=== PATIENT | male | born 1960 | race Caucasian/White ===

== ENCOUNTER → 2017-12-13 | Outpatient (CLI) | payer OTHER ==
[2017-12-13 15:46] LABS: BASO % 0.3 %; BASO ABS # 0.02 K/uL (0-0.2); EOS % 3.3 %; EOS ABS # 0.25 K/uL (0-0.5); HEMATOCRIT 31.2 % (42-52); HEMOGLOBIN 9.8 g/dL (14.0-18.0); IG# 0.01 K/uL (0.00-0.02); LYMPH % 22.4 %; LYMPH ABS # 1.69 K/uL (1.2-3.4); MEAN CELL VOLUME 85.2 fL (80-100); MEAN CORPUSCULAR HEMOGLOBIN 26.8 pg (25-34); MEAN CORPUSCULAR HGB CONC 31.4 g/dl (32-36); MEAN PLATELET VOLUME 8.5 fL (7.4-10.4); MONO % 4.9 %; MONO ABS # 0.37 K/uL (0.11-0.59); PLATELET COUNT 507 K/uL (130-400); RED CELL DISTRIBUTION WIDTH CV 15.3 % (11.5-14.5); RED CELL DISTRIBUTION WIDTH SD 47.6 fL (36.4-46.3); WHITE BLOOD COUNT 7.54 K/uL (4.8-10.8)
== END | disposition home or self-care (01) ==
LOC: C.LAB 14:46
DX: Z96.652 Presence of left artificial knee joint (principal)

== ENCOUNTER → 2018-02-28 | Outpatient (CLI) | payer OTHER ==
[~2018-02-28] MED LIST: ACET-24 PO; ASPI325T39 PO; ASPI81TA28 PO; ATOR-24 PO; DAPT500I INJ; LPD600 PO; MULT-506 PO; NXM/40 PO; ONDA-170 PO; PARO1TAB9 PO; PRMT25 PO; RXC5 PO; TRAZ50TA35 PO; XRL10 PO
== END | disposition home or self-care (01) ==
LOC: C.LABSPEC 11:36
DX: T84.54XD Infection and inflammatory reaction due to internal left knee prosthesis, subsequent encounter (principal); Y83.1 Surgical operation with implant of artificial internal device as the cause of abnormal reaction of the patient, or of later complication, without mention of misadventure at the time of the procedure

== ENCOUNTER 2018-03-06 11:24 | Inpatient (IN) | payer OTHER ==
[2018-01-22 11:06] VITALS: BMI 43.0
--- NOTE | 2018-03-05 11:51 | HISTORY & PHYSICAL EXAMINATION ---
DATE OF ADMISSION: 03/06/2018 CHIEF COMPLAINT: Septic left total knee arthroplasty. HISTORY OF PRESENT ILLNESS: Patient is a 57-year-old male, approximately 8 weeks status post left total knee excisional arthroplasty and placement of articulated antibiotic spacer. Patient had a PICC line in place and approximately 6 weeks of IV antibiotics. He was recently seen for repeat aspiration prior to revision knee arthroplasty. The knee aspirate was suspicious for ongoing infection. Cultures demonstrated MRSA, and cell count demonstrated ongoing infection. He is now scheduled for left knee removal of existing antibiotic spacer and revision to a new articulated versus static antibiotic spacer. PAST MEDICAL HISTORY: Hypercholesterolemia, sleep apnea, with CPAP use, depression, kidney stones, acid reflux, obesity. PAST SURGICAL HISTORY: Left knee as above and previous left total knee arthroplasty by an outside physician, bilateral shoulder surgery, gastric bypass, neck surgery, right hand surgery. MEDICATIONS: Atorvastatin 80 mg daily, esomeprazole 40 mg daily, gemfibrozil 600 mg 2 times daily, midodrine 5 mg 2 times daily, multivitamin daily, paroxetine ER 25 mg 2 tablets daily, trazodone 50 mg daily. ALLERGIES: FISH OIL. SOCIAL HISTORY: Noncontributory. REVIEW OF SYSTEMS: Noncontributory. PHYSICAL EXAMINATION: GENERAL: Well-nourished and well-developed male who appears older than his stated age. HEENT: Normocephalic, atraumatic. Extraocular movements intact. Oropharynx pink and moist. NECK: Supple, no adenopathy. LUNGS: Clear to auscultation bilaterally. HEART: Regular rate and rhythm. ABDOMEN: Soft, nontender, nondistended. EXTREMITIES: The upper extremities are within normal limits. The left knee has a healed midline incision from his multiple previous surgeries. His range of motion is from 0 to 90 degrees. He has continued effusion. ASSESSMENT: Recurrent infection, left knee. PLAN: Risks versus benefits were discussed, consent was obtained. Patient's primary care physician is the [facility]. Will proceed with left knee removal of articulated antibiotic spacer and repeat I and D and placement of articulated versus static antibiotic spacer.
--- NOTE | 2018-03-05 12:32 | HISTORY & PHYSICAL EXAMINATION ---
DATE OF ADMISSION: 03/06/2018 CHIEF COMPLAINT: History of left septic knee replacement. HISTORY OF PRESENT ILLNESS: Mr. Heaton is a 57-year-old male who currently has an antibiotic spacer in his left knee. This placed on 01/02/2018. The patient has recently completed 6 weeks of IV antibiotics and is now seeing me for a potential preop for revision knee arthroplasty. The patient had a fall a few days prior and was seen at [facility]. Since that time, the patient has had limited range of motion and increased pain in the knee. X-rays today reveal anterior displacement of the tibial component. The patient's original knee was done in 1988. PAST MEDICAL HISTORY: History of cerebrovascular accident with right-sided residual effects, history of MRSA. He denies heart disease, diabetes or DVT. PAST SURGICAL HISTORY: Left TKA, left TKA excision with antibiotic spacer, bilateral total shoulder arthroplasty, gastric bypass, hernia repair and cervical fusion. SOCIAL HISTORY: The patient denies alcohol use. He does smoke 1-2 cigars per day. He lives in a 2-story home. He lives alone and is currently on disability due to his CVA. FAMILY HISTORY: Negative for DVT. MEDICATIONS: Unknown. ALLERGIES: FISH OIL, CAUSES HEARTBURN. REVIEW OF SYSTEMS: See HPI. Ten other systems reviewed, all negative. PHYSICAL EXAMINATION: VITAL SIGNS: Height 5 feet 4 inches, weight 243 pounds. GENERAL: This is a well-developed, well-nourished male who is alert and oriented x3. Mood and affect are appropriate. HEENT: Normocephalic, atraumatic. Mucous membranes are moist and intact. NECK: Supple without lymphadenopathy. HEART: Regular rate and rhythm without murmurs, rubs or gallops. LUNGS: Clear to auscultation without wheezes or rhonchi. ABDOMEN: Soft and nontender. Bowel sounds are equal and active. EXTREMITIES: Left lower extremity shows moderate edema. He has a midline incision that is well healed. Knee is warm to the touch. He has significant swelling posteriorly. He is diffusely tender. Range of motion is limited at this point due to his spacer. He is neurovascularly intact. X-RAY EXAMINATION: AP and lateral views show antibiotic spacer, the tibial component does appear to be anteriorly displaced on the tibia. PROCEDURE: The patient was sterilely prepped with Betadine and alcohol. He was injected with 5 mL of lidocaine through a lateral suprapatellar portal. He was aspirated for approximately 25 mL of cloudy purulent looking fluid. Fluid was sent for cell count, Gram stain and culture and sensitivity. Bacitracin ointment was applied. The patient tolerated this well. IMPRESSION: History of septic left total knee with antibiotic spacer, likely recurrent infection. PLAN: The patient is scheduled for for excisional of his antibiotic spacer. Will follow his cultures. The patient will likely need to be reimplanted with another spacer and have another 6 weeks of IV antibiotics per Dr. Avilez.
[~2018-03-06] VITALS: Ht 162.6 cm; Wt 113.6 kg
[2018-03-06] VITALS (8 sets, daily range): BP systolic 98–148; BP diastolic 78–84; PULSE 77–97; TEMP 36.4–36.9; O2SAT 96–97; Ht 162.6 cm; Wt 113.6 kg
[2018-03-06] MEDS: TRANEXAMIC ACID INJ 1,000 MG x 2 Bags IV SCH ×4 (06:30→12:07)
[~2018-03-06 11:24] MED LIST changes: -ACET-24 PO; +ACETAMINOPHEN 500 MG TAB PO SCH; +ATROPINE SULFATE 0.1 MG/ML 5ML SYR IV PRN; +BACITRACIN 50000 UNIT VIAL ONE; +CEFAZOLIN 2000MG IV PUSH 15 ML IV SCH; +CeleBREX 200 MG CAP PO SCH; +EpHEDrine SULFATE INJ 50 MG/ML AMP IV PRN; +FENTANYL CITRATE INJ 50 MCG/1 ML 2 ML VIAL IV PRN; +FLUMAZENIL 0.1 MG/1 ML 10 ML VIAL IV PRN; +GABAPENTIN 600 MG PO SCH; +HYDROmorphone INJ 2 MG/ML SYR/VIAL IV PRN; +LABETALOL HCL IV 5 MG/ML 20ML IV PRN; +LACTATED RINGER'S 1000ML 1,000 ML IV SCH; +LACTATED RINGER'S 1000ML 500 ML IV SCH; +MEPERIDINE HCL 25 MG/ML CARP IV PRN; +MIDAZOLAM HCL 1 MG/ML 2ML VIAL ONE; +NALOXONE HCL 0.4 MG/1 ML VIAL/CARP IV PRN; -ONDA-170 PO; +ONDANSETRON INJ 2 MG/ML 2 ML VIAL IV PRN; +ORTHO JOINT ANESTHETIC ONE; +PHENYLEPHRINE 100MCG/ML 5ML SYR IV PRN; +POVIDONE-IODINE OP SOLN 30 ML BTL ONE; +ROPIVACAINE 5MG/ML 30 ML 150 MG, BUPIVACAINE 0.5% MPF INJ 30 ML, EpINEphrine HCL INJ 0.... INFIL SCH; -RXC5 PO; +VANCOMYCIN HCL 1000MG/20ML VIAL ONE; -XRL10 PO
[2018-03-06] MEDS ORDERED: BACITRACIN 50000 UNIT VIAL ONE (11:56)
--- NOTE | 2018-03-06 11:58 | History & Physical Bridge Note ---
H&P Re-Evaluation Bridge Note: I have examined the patient, reviewed the History & Physical and in the interval since the performance of the History & Physical I have noted the following changes of clinical significance: No changes noted
[2018-03-06] MEDS ORDERED: FENTANYL CITRATE INJ 50 MCG/1 ML 2 ML VIAL ONE (12:07)
[2018-03-06] MEDS ORDERED: MIDAZOLAM HCL 1 MG/ML 2ML VIAL ONE ×2 (12:28→13:35)
[2018-03-06] MEDS ORDERED: LIDOCAINE HCL 2% 2 ML VIAL (20MG/ML) ONE (12:41)
[2018-03-06] MEDS ORDERED: PROPOFOL IV EMULSION 10 MG/ML 20 ML VIAL ONE ×3 (12:41→13:47)
[2018-03-06] MEDS ORDERED: VANCOMYCIN HCL 1000MG/20ML VIAL ONE (12:46)
--- NOTE | 2018-03-06 14:24 | [facility] Post Operative Brief Note ---
Immediate Operative Summary Operative Date Mar 06, 2018. Pre-Operative Diagnosis Recurrent infection, left total knee Post-Operative Diagnosis Recurrent infection, left total knee Procedure(s) Performed Left Knee Excisional Arthroplasty Placement of Articulated Spacer, Incision and Drainage of Extra-articular Abscess Surgeon Dr. Avilez Vice President And Portfolio Manager Surgeon(s) Ludwin Betancourt PA-C Estimated Blood Loss 100cc Findings Consistent with Post-Op Diagnosis Specimens Microbiology #1- left knee pus- gram stain, routine culture and sensitivity, anaerobic: out of room at 1253 Permanent Specimen A: Explanted Hardware left knee Anesthesia Type MAC Spinal Regional Complication(s) none Disposition Accompanied Pt To Recover: no Disposition: Recovery Room / PACU Overlapping Procedure I was present for: the critical portions of procedure. I was immediately available: during the entire case
[2018-03-06] MEDS ORDERED: METOCLOPRAMIDE HCL INJ 5 MG/ML 2 ML VIAL IV PRN (15:00)
[2018-03-06] MEDS ORDERED: MAGNESIUM HYDROXIDE SUSP 30 ML UDC PO PRN (15:00)
[2018-03-06] MEDS ORDERED: ALUMINUM/MAGNESIUM/SIMETH (MAALOX MAX) 30 ML UDC PO PRN (15:00)
[2018-03-06] MEDS ORDERED: MoRPHine SULFATE 4 MG/ML 1 ML CARP\\VIAL IV PRN (15:00)
[2018-03-06] MEDS ORDERED: TAMSULOSIN HCL 0.4 MG CAP PO PRN (15:00)
[2018-03-06] MEDS ORDERED: ONDANSETRON INJ 2 MG/ML 2 ML VIAL IV PRN (15:00)
[2018-03-06] MEDS ORDERED: ZOLPIDEM TARTRATE 5 MG TAB PO PRN (15:00)
--- NOTE | 2018-03-06 15:18 | OPERATIVE REPORT ---
DATE OF OPERATION: 03/06/2018 PREOPERATIVE DIAGNOSIS: Recurrent infection, articulated cement spacer, left knee. POSTOPERATIVE DIAGNOSIS: Recurrent infection, articulated cement spacer, left knee with extraarticular abscess. PROCEDURE: Excisional arthroplasty, I and D abscess, and placement of new articulated cement spacer. SURGEON: Solis Avilez MD BACTERIOLOGIST MEDICAL: Ludwin Betancourt PA-C ANESTHESIA: General. COMPLICATIONS: None. DESCRIPTION OF PROCEDURE: Following induction of adequate general anesthesia, the patient's left leg was prepped and draped in usual sterile manner. Limb was exsanguinated with elevation only and tourniquet inflated to 350 mmHg. Previously made median parapatellar incision was reopened and gross purulence was noted. A set of cultures was taken. Initial irrigation was carried out. The lateral snip had an opening in it and that repair had failed. The synovectomy was first carried out using sharp dissection and the tibia which was grossly loose was removed. The medial face of the tibia was cleared of soft tissue using a Bovie and a Quintana elevator. Next, attention was turned to the femur where using a bone tamp and a mallet, the femoral component easily was removed with no additional bone lost. Significant soft tissue biofilm was noted on all bony surfaces. The patellar component was easily levered off using an osteotome bleeding, no bone on the component. Using a mechanical debridement, all biofilm was removed. Reverse curettes were used in the tibial and femoral canals cleansing these as thoroughly as possible and a canal brush was used with a pulsatile irrigation system to further eliminate biofilm. The Versajet was utilized extensively throughout the case covering all exposed soft tissues removing any microscopic deposits of biofilm as thoroughly as possible. The final 2500 mL of irrigant was irrigated through the knee and Stimulan beads were manufactured with 2 grams of vancomycin. After this irrigation, the Stimulan beads were placed in both canals, tibial and femoral as well as 20 or so beads being placed in the abscess extra-articularly. This abscess was left open and the cement was mixed with 12 grams of vancomycin. The tibial trial was chosen was a size 25 mm. This tibial component was roughened on its back surface with a fresh oscillating saw and prior to touching any of the new components, new gown and gloves and down sheet were placed and the tibia was cemented into position after cementing the femur in position and removing excess cement. The knee was held in extension while cement hardened. The patellar loose pegs had been removed with was also cemented into position. The lateral snip was repaired using #2 Tycron suture figure of eight and Hemovac drain was placed. Final irrigation of the final 2500 mL of pulsatile irrigant was carried out. A total of 9 L of irrigation were utilized for this case, all with bacitracin. The Hemovac drain was placed. After cement hardened, the extensor mechanism was closed using #1 Vicryl, subcutaneous tissue was closed using 0 Dexon. Skin was closed with gaye. Sterile dressing of Adaptic, 4x4s, sterile Webril and a knee immobilizer with an Pranav wrap was applied. The patient tolerated the procedure well. I attest to the content of the Intraoperative Record and any orders documented therein. Any exception s are noted below.
--- NOTE | 2018-03-06 15:26 | Anesthesiology Progress Note ---
Anesthesia Post Op Note Date & Time Mar 06, 2018 at 15:26 Vital Signs Pain Intensity: 0 Vital Signs Past 12 Hours Date Time Temp Pulse Resp B/P (MAP) Pulse Ox O2 Delivery O2 Flow Rate FiO2 03/06/18 15:15 74 22 116/80 95 Room Air 03/06/18 15:05 73 21 113/79 95 Room Air 03/06/18 14:56 36.1 82 22 105/73 97 Room Air 03/06/18 11:46 36.9 96 18 98/78 96 Room Air Notes Mental Status: alert / awake / arousable, participated in evaluation Nausea / Vomiting: adequately controlled Pain: adequately controlled Airway Patency, RR, SpO2: stable & adequate BP & HR: stable & adequate Hydration State: stable & adequate Neuraxial Anesthesia: was administered, sensory block is resolving Anesthetic Complications: no major complications apparent
--- NOTE | 2018-03-06 15:40 | DIAGNOSTIC IMAGING REPORT ---
L KNEE 1 OR 2 VIEWS ROUTINE CLINICAL HISTORY: 57 years-old Male presenting with AP/LATERAL IN PACU LEFT KNEE. TECHNIQUE: Frontal and crosstable lateral views of the left knee were obtained. COMPARISON: 01/02/2018. FINDINGS: Postsurgical changes of antibiotic bead/cement placement within the intramedullary space of the distal femur and proximal tibia. Antibiotic beads also noted in the joint space posteriorly. Again noted are postsurgical changes of removal of the tibial component of the total left knee arthroplasty. Osseous defect remains and a spacer is likely in place. Post surgical changes of patellar resurfacing also noted. Soft tissue and intra-articular gas noted. A surgical drain is in place. Diffuse soft tissue swelling. No malalignment. No fracture. Old screw tracks noted in the proximal tibia. IMPRESSION: Expected postoperative appearance as detailed above. Electronically signed by: Deni Tan M.D. 03/06/2018 3:39 PM Dictated Date/Time: 03/06/2018 3:35 PM
--- NOTE | 2018-03-06 16:50 | Medical Consult ---
Consultation Date of Consultation: Mar 06, 2018. Attending Physician: Solis Avilez M.D. Reason for Consultation: Post-Op Management History of Present Illness Mr. Heaton is a 57 y/o male with PMHx of EMILE on CPAP, Depression, DJD, GERD, and HLD who is S/P L knee revision/Abx spacer and I&D on 03/06. Patient had initial TKA in 1988 but developed septic joint recently. He had an initial washout with abx spacer and completed 6 weeks Daptomycin. He reports he sustained a recent fall and had a F/U with Dr. Armijo office which they were concerned for ongoing infection. He is growing MRSA in the joint aspiration. Per operative record there was evidence of abscess as well. Patient reports feeling well and no pain. Is awaiting something to eat. He denies H/O cardiac history or h/o blood clots. Past Medical/Surgical History 1. EMILE on CPAP 2. Depression 3. DJD 4. GERD 5. HLD 6. S/P L TKA with Septic Arthritis - MRSA 7. S/P L Shoulder Repair 8. Obesity 9. Renal Calculi 10. Orthostatic Hypotension 11. S/P Gastric Bypass Family History Noncontributory Social History Smoking Status: Former Smoker Alcohol Use: socially Drug Use: none Allergies Coded Allergies: Fish Oil (Verified Adverse Reaction, Unknown, reflux,VOMITING, 03/06/18) Current Inpatient Medications Current Inpatient Medications Medications (Trade) Dose Ordered Sig/Jose Luis Route Start Time Stop Time Status Last Admin Dose Admin Potassium Chloride/Dextrose/ Sod Cl 1,000 ml @ 100 mls/hr Q10H IV 03/06/18 16:30 03/07/18 14:52 Ketorolac Tromethamine (Toradol Inj) 30 mg Q6H IV. 03/06/18 18:00 03/07/18 14:59 Oxycodone HCl (Roxicodone Immediate Rel Tab) 1 TABLET FOR PAIN RATING... Q4H PRN PO 03/06/18 15:00 03/20/18 14:59 Morphine Sulfate (MoRPHine SULFATE INJ) For pain rating 1-5 give 2... Q2HWA PRN IV 03/06/18 15:00 03/20/18 14:59 Acetaminophen (Tylenol Tab) 1,000 mg Q8H PO 03/06/18 22:00 04/05/18 14:59 Magnesium Hydroxide (Milk Of Magnesia Susp) 30 ml Q6H PRN PO 03/06/18 15:00 04/05/18 14:59 Docusate Sodium (coLACE CAP) 100 mg BID PO 03/06/18 21:00 04/05/18 20:59 Diphenhydramine HCl (Benadryl Cap) 25 mg Q8H PRN PO 03/06/18 15:00 04/05/18 14:59 Al Hydrox/Mg Hydrox/Simethicone (Maalox Max Susp) 15 ml Q4H PRN PO 03/06/18 15:00 04/05/18 14:59 Zolpidem Tartrate (Ambien Tab) 5 mg HSZ PRN PO 03/06/18 15:00 04/05/18 14:59 Multivitamins (Multivitamin Tab) 1 tab QAM PO 03/07/18 09:00 04/06/18 08:59 Ondansetron HCl (Zofran Inj) 4 mg Q6H PRN IV 03/06/18 15:00 04/05/18 14:59 Metoclopramide HCl (Reglan Inj) 10 mg Q6H PRN IV 03/06/18 15:00 04/05/18 14:59 Ferrous Gluconate (Ferrous Gluconate Tab) 324 mg TIDM PO 03/06/18 17:45 04/05/18 17:59 Pantoprazole Sodium (Protonix Tab) 40 mg QAM PO 03/07/18 09:00 03/10/18 09:01 Tamsulosin HCl (Flomax Cap) 0.4 mg QAM PRN PO 03/06/18 15:00 04/05/18 14:59 Dexamethasone Sodium Phosphate 10 mg/Syringe 2.5 ml @ 1 mls/min 0730 IV 03/07/18 07:30 03/07/18 07:33 Rivaroxaban (Xarelto Tab) 10 mg QDD PO 03/07/18 14:00 04/06/18 13:59 Atorvastatin Calcium (Lipitor Tab) 80 mg HS PO 03/06/18 21:00 04/05/18 20:59 Future Hold Gemfibrozil (Lopid Tab) 600 mg BID PO 03/06/18 21:00 04/05/18 20:59 Midodrine (Proamatine Tab) 5 mg TID@0800,1200,1700 PO 03/06/18 17:00 04/05/18 16:59 Paroxetine HCl (pAXil CONTROLLED REL TAB) 50 mg QAM PO 03/07/18 09:00 04/06/18 08:59 Trazodone HCl (Desyrel Tab) 50 mg HS PO 03/06/18 21:00 04/05/18 20:59 Daptomycin 700 mg/ Syringe 14 ml @ 7 mls/min DAILY@1200 IV 03/06/18 17:00 04/17/18 16:59 Review of Systems Constitutional: No fever, No chills ENT: No nasal symptoms, No sore throat Respiratory: No cough, No shortness of breath Cardiovascular: No chest pain, No palpitations Abdomen: No pain, No nausea, No vomiting, No diarrhea, No constipation Musculoskeletal: No joint pain, No swelling, No calf pain Genitourinary - Male: No dysuria Hematologic / Lymphatic: No abnormal bleeding/bruising Physical Exam Date Time Temp Pulse Resp B/P (MAP) Pulse Ox O2 Delivery O2 Flow Rate FiO2 03/06/18 16:21 36.4 77 18 115/84 (94) 96 Room Air 03/06/18 15:50 36.5 83 20 119/79 (92) 97 Room Air 03/06/18 15:50 96 Room Air 03/06/18 15:50 97 Room Air 03/06/18 15:30 36.4 75 22 114/76 95 Room Air 03/06/18 15:25 77 22 112/78 98 Room Air 03/06/18 15:15 74 22 116/80 95 Room Air 03/06/18 15:05 73 21 113/79 95 Room Air 03/06/18 14:56 36.1 82 22 105/73 97 Room Air 03/06/18 11:46 36.9 96 18 98/78 96 Room Air General Appearance: WD/WN, no apparent distress Head: normocephalic, atraumatic Eyes: sclerae normal ENT: hearing grossly normal Neck: supple, no JVD, trachea midline Respiratory/Chest: lungs clear, normal breath sounds, no respiratory distress, no accessory muscle use Cardiovascular: regular rate, rhythm, no gallop, no murmur Abdomen/GI: normal bowel sounds, non tender, soft Extremities/Musculoskelatal: normal capillary refill, + pertinent finding (L knee with wrap and drain present) Neurologic/Psych: alert, oriented x 3 Skin: normal color, warm/dry Assessment & Plan Mr. Heaton is a 57 y/o male with PMHx of EMILE on CPAP, Depression, DJD, GERD, and HLD who is S/P L knee revision/Abx spacer and I&D on 03/06. Patient had initial TKA in 1988 but developed septic joint recently. Septic Joint S/P L Knee Revision/Abx Spacer/I&D Abscess: - Pain management, PT/OT, DVT Prophylaxis, Surgical management per primary - Review of previous cx with MRSA present - sensitive to Dapto - was previously on this x 6 weeks and ID is consulted HLD: - Atorvastatin on hold due to Daptomycin; Gemfibrozil 600 mg BID EMILE on CPAP: - May use own CPAP Hospitalists will continue to follow
[2018-03-06] MEDS: OXYCODONE HCL IR 5 MG TAB (IMMEDIATE RELEASE) PO PRN (18:00)
[2018-03-06] MEDS: FERROUS GLUCONATE 324 MG TAB PO SCH (18:03)
[2018-03-06] MEDS: MIDODRINE 2.5 MG TAB PO SCH (18:03)
[2018-03-06] MEDS: DAPTOmycin IV 700 MG in SYRINGE 0 ML IV SCH (18:03)
[2018-03-06] MEDS: KETOROLAC TROMETHAMINE 30 MG/ML VIAL IV. SCH (18:04)
[2018-03-06] MEDS: D5W AND 1/2NSS + 20MEQ KCL 1,000 ML IV SCH (20:39)
[2018-03-06] MEDS: GEMFIBROZIL 600 MG TAB PO SCH (20:40)
[2018-03-06] MEDS: TRAZODONE HCL 50 MG TAB PO SCH (20:40)
[2018-03-06] MEDS: DOCUSATE SODIUM 100 MG CAP PO SCH (20:40)
[2018-03-06] MEDS ORDERED: ATORVASTATIN 40 MG TAB PO SCH (21:00)
[2018-03-06] MEDS: ACETAMINOPHEN 500 MG TAB PO SCH (21:52)
[2018-03-07] MEDS: KETOROLAC TROMETHAMINE 30 MG/ML VIAL IV. SCH ×3 (00:20→11:49)
[2018-03-07 03:51] VITALS: BP 122/72; PULSE 89; TEMP 36.7; O2SAT 97
[2018-03-07] MEDS: ACETAMINOPHEN 500 MG TAB PO SCH ×3 (05:48→21:05)
[2018-03-07] MEDS: D5W AND 1/2NSS + 20MEQ KCL 1,000 ML IV SCH ×2 (06:17→16:51)
[2018-03-07 06:47] LABS: HEMATOCRIT 31.4 % (42-52); HEMOGLOBIN 9.9 g/dL (14.0-18.0); MEAN CELL VOLUME 84.2 fL (80-100); MEAN CORPUSCULAR HEMOGLOBIN 26.5 pg (25-34); MEAN CORPUSCULAR HGB CONC 31.5 g/dl (32-36); MEAN PLATELET VOLUME 8.9 fL (7.4-10.4); PLATELET COUNT 460 K/uL (130-400); RED CELL DISTRIBUTION WIDTH CV 15.9 % (11.5-14.5); RED CELL DISTRIBUTION WIDTH SD 49.3 fL (36.4-46.3); WHITE BLOOD COUNT 8.46 K/uL (4.8-10.8)
[2018-03-07 07:08] VITALS: BP 131/81; PULSE 92; TEMP 36.8; O2SAT 95
[2018-03-07 07:18] LABS: CALCIUM 8.7 mg/dl (8.5-10.1); CREATININE 1.14 mg/dl (0.60-1.40); POTASSIUM 4.3 mmol/L (3.5-5.1)
[2018-03-07] MEDS ORDERED: DEXAMETHASONE INJ 10 MG in SYRINGE 0 ML IV SCH (07:30)
[2018-03-07] MEDS: MIDODRINE 2.5 MG TAB PO SCH ×3 (07:56→16:51)
--- NOTE | 2018-03-07 08:03 | Orthopedic Progress Note ---
Orthopedic Progress Note Date of Service Mar 07, 2018. Subjective Post OP Day: 1 Reports: feeling well Objective N/V intact, dressing C/D/I (Hemovac in place), toes mobile Date Time Temp Pulse Resp B/P (MAP) Pulse Ox O2 Delivery O2 Flow Rate FiO2 03/07/18 07:08 36.8 92 18 131/81 (98) 95 Room Air 03/07/18 03:51 36.7 89 18 122/72 (89) 97 Room Air 03/06/18 23:50 96 Room Air CPAP 03/06/18 23:14 36.6 97 16 129/78 (95) 96 CPAP 03/06/18 18:55 36.7 90 18 141/83 (102) 96 Room Air 03/06/18 17:52 36.7 90 20 148/78 (101) 97 Room Air 03/06/18 16:56 36.6 84 18 132/84 (100) 97 Room Air 03/06/18 16:21 36.4 77 18 115/84 (94) 96 Room Air 03/06/18 15:50 36.5 83 20 119/79 (92) 97 Room Air 03/06/18 15:50 96 Room Air 03/06/18 15:50 97 Room Air 03/06/18 15:30 36.4 75 22 114/76 95 Room Air 03/06/18 15:25 77 22 112/78 98 Room Air 03/06/18 15:15 74 22 116/80 95 Room Air 03/06/18 15:05 73 21 113/79 95 Room Air 03/06/18 14:56 36.1 82 22 105/73 97 Room Air 03/06/18 11:46 36.9 96 18 98/78 96 Room Air Laboratory Results 24 Hours: Test 03/07/18 06:28 Hematocrit 31.4 % Hemoglobin 9.9 g/dL Assessment & Plan Assessment: 57 yo male stable POD #1 s/p repeat I&D, revision articulated antibiotic spacer , septic left TKA(MRSA) Plan: 1. Med management- medicine and infectious disease consulted, pt with PICC line in place and currently on Dapto 2. DVT prophylaxis- Xarelto, SCDs 3. PT/OT- gait training(TTWB), no knee flexion at this time(maintain knee immobilizer) 4. D/C planning- pt to require at least 6 more weeks IV abx
[2018-03-07] MEDS: GEMFIBROZIL 600 MG TAB PO SCH ×2 (08:24→21:05)
[2018-03-07] MEDS: MULTIVITAMIN TAB PO SCH (08:24)
[2018-03-07] MEDS: PANTOprazole SOD 40 MG TAB PO SCH (08:24)
[2018-03-07] MEDS: DOCUSATE SODIUM 100 MG CAP PO SCH ×2 (08:24→21:05)
[2018-03-07] MEDS: PAROXETINE 12.5 MG TABCR PO SCH (08:24)
[2018-03-07] MEDS: FERROUS GLUCONATE 324 MG TAB PO SCH ×3 (08:24→17:41)
--- NOTE | 2018-03-07 10:01 | Anesthesiology Progress Note ---
Anesthesia Post Op Note Date & Time Mar 07, 2018 at 10:00 Vital Signs Pain Intensity: 0.0 Vital Signs Past 12 Hours Date Time Temp Pulse Resp B/P (MAP) Pulse Ox O2 Delivery O2 Flow Rate FiO2 03/07/18 08:11 Room Air 03/07/18 07:08 36.8 92 18 131/81 (98) 95 Room Air 03/07/18 03:51 36.7 89 18 122/72 (89) 97 Room Air 03/06/18 23:50 96 Room Air CPAP 03/06/18 23:14 36.6 97 16 129/78 (95) 96 CPAP Notes Mental Status: alert / awake / arousable, participated in evaluation Pt Amnestic to Procedure: Yes Nausea / Vomiting: adequately controlled Pain: adequately controlled Airway Patency, RR, SpO2: stable & adequate BP & HR: stable & adequate Hydration State: stable & adequate Neuraxial Anesthesia: sensory block resolved Anesthetic Complications: no major complications apparent
--- NOTE | 2018-03-07 10:41 | INFECT. DISEASE CONSULTATION ---
DATE OF CONSULTATION: 03/07/2018 HISTORY OF PRESENT ILLNESS: This is a 57-year-old gentleman who recently underwent a left knee joint removal with spacer placement. He has been on approximately 6 weeks of IV daptomycin. His previous cultures grew MRSA. He recently had an aspiration of the knee, and cultures again grew MRSA. He was scheduled electively to have his old spacer removed and a new spacer placed. This was done yesterday. On my exam today, he states he is in some pain but overall feeling better. He denies any fevers or chills. He denies any issues with his daptomycin at home. He has no pain at his PICC site. He has been afebrile since admission to the hospital. He remains on daptomycin. His white blood cell count is normal. His intraoperative cultures are growing gram positive cocci. He denies headache, chest pain, shortness of breath, cough, nausea, vomiting, diarrhea, or abdominal pain. His remaining review of systems is unremarkable. PAST MEDICAL HISTORY: Hypercholesterolemia, sleep apnea, on CPAP, depression, kidney stones, GERD, and obesity. PAST SURGICAL HISTORY: Significant for previous left knee replacement spacer placement and a repeat spacer yesterday, shoulder surgery, gastric bypass, neck surgery, and right hand surgery. ALLERGIES: INCLUDE FISH OIL. SOCIAL HISTORY: Noncontributory. FAMILY HISTORY: Noncontributory. CURRENT MEDICATIONS: Xarelto, multivitamin, Protonix, Paxil, Tylenol, Colace, gemfibrozil, trazodone, Toradol, iron, midodrine, daptomycin, Roxicodone, morphine, milk of magnesia, Maalox, Ambien, Zofran, Reglan, Flomax. PHYSICAL EXAMINATION: VITAL SIGNS: He is afebrile, pulse 92, respiratory rate 18, blood pressure 131/81, and oxygen saturation is 95% on room air. GENERAL: He is awake, alert, and oriented x3. He is in no acute distress. HEENT: Mucous membranes are moist. Extraocular muscles are intact. CARDIOVASCULAR: Heart is regular. RESPIRATORY: Lungs are clear. GASTROINTESTINAL: Abdomen is soft, nontender, nondistended. EXTREMITIES: Left lower extremity dressing is in place. Drain is in place with serosanguineous fluid. PICC line is in the right upper extremity. It is clean, dry, and intact, with no erythema, warmth, fluctuation, or induration. LABORATORY DATA: CBC: On the 10th, white blood cell count 8.4, hemoglobin 9.9, platelets 460. Chemistry panel: Sodium 139, potassium 4.3, chloride 106, bicarbonate 26, BUN 27, creatinine 1.1, glucose 123. OR cultures are growing staph species. ASSESSMENT AND PLAN: Infected left knee. He will remain on daptomycin for at least additional 6 weeks. He will need weekly CBC, chemistry panel, sedimentation rate, and CPK. He can follow with infectious diseases post discharge from the hospital, and he states he is due to be discharged tomorrow. Thank you for this consultation.
--- NOTE | 2018-03-07 10:56 | DIAGNOSTIC IMAGING REPORT ---
CHEST ONE VIEW PORTABLE CLINICAL HISTORY: 57 years-old Male presenting with PICC LINE PLACEMENT. TECHNIQUE: Portable upright AP view of the chest was obtained. COMPARISON: 12/30/2017. FINDINGS: Right upper extremity PICC terminates in the upper SVC. Cardiomediastinal silhouette normal. Lungs and pleural spaces clear. Degenerative changes of the thoracic spine. Degenerative changes of the bilateral shoulders. Upper abdomen normal. IMPRESSION: 1. Appropriately positioned right upper extremity PICC. No pneumothorax. Electronically signed by: Deni Tan M.D. 03/07/2018 10:55 AM Dictated Date/Time: 03/07/2018 10:53 AM
--- NOTE | 2018-03-07 11:31 | Progress Note ---
Progress Note Date of Service Mar 07, 2018. Progress Note ID Consult Dictated #[id number] A/P: 1. Infected Right knee spacer - h/o MRSA -Continue Dapto, will need 6 weeks, weekly cbc,cmp, esr, cpk whil on therapy -Can follow with ID post d/c
[2018-03-07] MEDS: DAPTOmycin IV 700 MG in SYRINGE 0 ML IV SCH (11:48)
[2018-03-07 11:56] VITALS: BP 134/85; PULSE 97; TEMP 36.7; O2SAT 98
[2018-03-07] MEDS ORDERED: DAPTOmycin 500 MG VIAL IV SCH (12:00)
[2018-03-07] MEDS ORDERED: RIVAROXABAN 10 MG TAB PO SCH (14:00)
--- NOTE | 2018-03-07 14:51 | Hospitalist Progress Note ---
Hospitalist Progress Note Date of Service Mar 07, 2018. (Steff Cabello .KRISTEL) Subjective Pt evaluation today including: conversation w/ patient, physical exam, chart review, lab review, review of studies, review of inpatient medication list Voiding: no voiding problems Mr. Heaton has no complaints. His pain is well controlled. ROS Constitutional: no chills, aches, sweats or fever Respiratory: no sob,cough, sputum, or wheezing Cardiac: no chest pain, palpitations, edema, orthopnea or lightheadedness GI: no abdominal pain, nausea, vomiting, diarrhea or constipation : no dysuria or hesitancy Extremities: no joint pain or weakness Skin: no rash All other systems reviewed and negative (Steff Cabello CRNP) Medications Medications Administered Medications (Trade) Dose Ordered Sig/Jose Luis Route Start Time Stop Time Status Last Admin Dose Admin Acetaminophen (Tylenol Tab) 1,000 mg PREOP PO 03/06/18 06:00 03/06/18 16:13 DC 03/06/18 12:09 1,000 MG Celecoxib (CeleBREX CAP) 200 mg PREOP PO 03/06/18 06:00 03/06/18 16:13 DC 03/06/18 12:08 200 MG Gabapentin (Neurontin Cap) 600 mg PREOP PO 03/06/18 06:00 03/06/18 16:13 DC 03/06/18 12:08 600 MG Tranexamic Acid 1000 mg/Sodium Chloride 110 ml @ 660 mls/hr TODAY@06,0630 IV 03/06/18 06:00 03/06/18 06:39 DC 03/06/18 12:07 660 MLS/HR Cefazolin Sodium 15 ml @ 3.75 mls/ min PREOP IV 03/06/18 06:00 03/06/18 16:13 DC 03/06/18 12:25 3.75 MLS/MIN Lactated Ringer's 500 ml @ 999 mls/hr Q31M IV 03/06/18 06:00 03/06/18 06:30 DC 03/06/18 12:08 999 MLS/HR Vancomycin HCl (Vancomycin Iv) 600 mg STK-MED ONCE .ROUTE 03/06/18 10:49 03/06/18 10:50 DC 03/06/18 13:11 600 MG Povidone Iodine (Betadine Ophthalmic Prep Solution) 30 ml STK-MED ONCE .ROUTE 03/06/18 10:49 03/06/18 10:50 DC 03/06/18 14:21 20 ML Bacitracin (Bacitracin Inj) 50,000 units STK-MED ONCE .ROUTE 03/06/18 10:49 03/06/18 10:50 DC 03/06/18 13:11 50,000 UNITS Bacitracin (Bacitracin Inj) 100,000 units STK-MED ONCE .ROUTE 03/06/18 11:56 03/06/18 11:57 DC 03/06/18 14:21 100,000 UNITS Vancomycin HCl (Vancomycin Iv) 100 mg STK-MED ONCE .ROUTE 03/06/18 12:46 03/06/18 12:47 DC 03/06/18 13:11 100 MG Potassium Chloride/Dextrose/ Sod Cl 1,000 ml @ 100 mls/hr Q10H IV 03/06/18 16:30 03/07/18 14:52 03/07/18 06:17 100 MLS/HR Ketorolac Tromethamine (Toradol Inj) 30 mg Q6H IV. 03/06/18 18:00 03/07/18 14:59 03/07/18 11:49 30 MG Oxycodone HCl (Roxicodone Immediate Rel Tab) 1 TABLET FOR PAIN RATING... Q4H PRN PO 03/06/18 15:00 03/20/18 14:59 03/06/18 18:00 10 MG Acetaminophen (Tylenol Tab) 1,000 mg Q8H PO 03/06/18 22:00 04/05/18 14:59 03/07/18 13:39 1,000 MG Docusate Sodium (coLACE CAP) 100 mg BID PO 03/06/18 21:00 04/05/18 20:59 03/07/18 08:24 100 MG Multivitamins (Multivitamin Tab) 1 tab QAM PO 03/07/18 09:00 04/06/18 08:59 03/07/18 08:24 1 TAB Ferrous Gluconate (Ferrous Gluconate Tab) 324 mg TIDM PO 03/06/18 17:45 04/05/18 17:59 03/07/18 11:55 324 MG Pantoprazole Sodium (Protonix Tab) 40 mg QAM PO 03/07/18 09:00 03/10/18 09:01 03/07/18 08:24 40 MG Dexamethasone Sodium Phosphate 10 mg/Syringe 2.5 ml @ 1 mls/min 0730 IV 03/07/18 07:30 03/07/18 07:33 DC 03/07/18 07:56 1 MLS/MIN Rivaroxaban (Xarelto Tab) 10 mg QDD PO 03/07/18 14:00 04/06/18 13:59 03/07/18 13:39 10 MG Gemfibrozil (Lopid Tab) 600 mg BID PO 03/06/18 21:00 04/05/18 20:59 03/07/18 08:24 600 MG Midodrine (Proamatine Tab) 5 mg TID@0800,1200,1700 PO 03/06/18 17:00 04/05/18 16:59 03/07/18 11:55 5 MG Paroxetine HCl (pAXil CONTROLLED REL TAB) 50 mg QAM PO 03/07/18 09:00 04/06/18 08:59 03/07/18 08:24 50 MG Trazodone HCl (Desyrel Tab) 50 mg HS PO 03/06/18 21:00 04/05/18 20:59 03/06/18 20:40 50 MG Daptomycin 700 mg/ Syringe 14 ml @ 7 mls/min DAILY@1200 IV 03/06/18 17:00 04/17/18 16:59 03/07/18 11:48 7 MLS/MIN (Steff Cabello, KRISTEL) Objective Vital Signs Date Time Temp Pulse Resp B/P (MAP) Pulse Ox O2 Delivery O2 Flow Rate FiO2 03/07/18 11:56 36.7 97 18 134/85 (101) 98 Room Air 03/07/18 08:11 Room Air 03/07/18 07:08 36.8 92 18 131/81 (98) 95 Room Air 03/07/18 03:51 36.7 89 18 122/72 (89) 97 Room Air 03/06/18 23:50 96 Room Air CPAP 03/06/18 23:14 36.6 97 16 129/78 (95) 96 CPAP 03/06/18 18:55 36.7 90 18 141/83 (102) 96 Room Air 03/06/18 17:52 36.7 90 20 148/78 (101) 97 Room Air 03/06/18 16:56 36.6 84 18 132/84 (100) 97 Room Air 03/06/18 16:21 36.4 77 18 115/84 (94) 96 Room Air 03/06/18 15:50 36.5 83 20 119/79 (92) 97 Room Air 03/06/18 15:50 96 Room Air 03/06/18 15:50 97 Room Air 03/06/18 15:30 36.4 75 22 114/76 95 Room Air 03/06/18 15:25 77 22 112/78 98 Room Air 03/06/18 15:15 74 22 116/80 95 Room Air 03/06/18 15:05 73 21 113/79 95 Room Air 03/06/18 14:56 36.1 82 22 105/73 97 Room Air (Steff Cabello CRNP) Physical Exam Notes: General: no distress Eyes: normal inspection, PERLL Respiratory: chest non tender, clear to auscultation, normal breath sounds, no respiratory distress, no accessory muscle use Cardiac: regular rate and rhythm, no rub or gallop, no murmur, no edema, no jvd GI/: active bowel sounds, no abd pain or tenderness, soft, non distended Extremities: left knee dressed, feet warm Neuro/Psych: alert and oriented x 3, normal mood and affect Skin: normal color, dry (Steff Cabello CRNP) Laboratory Results Last 24 Hours Test 03/07/18 06:28 White Blood Count 8.46 K/uL Red Blood Count 3.73 M/uL Hemoglobin 9.9 g/dL Hematocrit 31.4 % Mean Corpuscular Volume 84.2 fL Mean Corpuscular Hemoglobin 26.5 pg Mean Corpuscular Hemoglobin Concent 31.5 g/dl RDW Standard Deviation 49.3 fL RDW Coefficient of Variation 15.9 % Platelet Count 460 K/uL Mean Platelet Volume 8.9 fL Sodium Level 139 mmol/L Potassium Level 4.3 mmol/L Chloride Level 106 mmol/L Carbon Dioxide Level 26 mmol/L Anion Gap 7.0 mmol/L Blood Urea Nitrogen 27 mg/dl Creatinine 1.14 mg/dl Est Creatinine Clear Calc Drug Dose 80.9 ml/min Estimated GFR () 81.7 Estimated GFR (Non- 70.5 BUN/Creatinine Ratio 23.3 Random Glucose 123 mg/dl Calcium Level 8.7 mg/dl (Steff Cabello .KRISTEL) Assessment and Plan Mr. Heaton is a 57 y/o male here for left septic knee Septic Joint S/P L Knee Revision/Abx Spacer/I&D Abscess: - Pain management, PT/OT, DVT Prophylaxis, Surgical management per primary - Review of previous cx with MRSA present - sensitive to Dapto - was previously on this x 6 weeks and ID is consulted - plan is to continue 6 more weeks of dapto. Patient has PICC. Will need weekly CBC, chemistry panel,sedimentation rate, and CPK. HLD: - Atorvastatin on hold due to Daptomycin; Gemfibrozil 600 mg BID EMILE on CPAP: - May use own CPAP Hospitalists will sign off for now. Please let us know if we can be of further service. (Steff Cabello CRNP) [employer] Physician Supervision Note: I discussed with Steff Cabello [employer] TE[employer]ER and agree with findings and plan as documented in the note. Any exceptions or clarifications are listed here: None Documented By: Mark Geller (Mark Geller M.D.)
[2018-03-07 15:02] VITALS: BP 134/80; PULSE 88; TEMP 36.9; O2SAT 98
[2018-03-07] MEDS: OXYCODONE HCL IR 5 MG TAB (IMMEDIATE RELEASE) PO PRN (19:19)
[2018-03-07] MEDS: TRAZODONE HCL 50 MG TAB PO SCH (21:47)
[2018-03-07 22:55] VITALS: BP 117/76; PULSE 76; TEMP 36.6; O2SAT 98
[2018-03-08] MEDS: ACETAMINOPHEN 500 MG TAB PO SCH (06:24)
[2018-03-08 06:49] VITALS: BP 120/80; PULSE 88; TEMP 36.7; O2SAT 96
[2018-03-08] MEDS: GEMFIBROZIL 600 MG TAB PO SCH (08:02)
[2018-03-08] MEDS: DOCUSATE SODIUM 100 MG CAP PO SCH (08:02)
[2018-03-08] MEDS: MULTIVITAMIN TAB PO SCH (08:02)
[2018-03-08] MEDS: MIDODRINE 2.5 MG TAB PO SCH (08:02)
[2018-03-08] MEDS: FERROUS GLUCONATE 324 MG TAB PO SCH (08:03)
[2018-03-08] MEDS: PAROXETINE 12.5 MG TABCR PO SCH (08:03)
[2018-03-08] MEDS: PANTOprazole SOD 40 MG TAB PO SCH (08:03)
[2018-03-08 08:23] VITALS: BP 120/80; PULSE 88; TEMP 36.7; O2SAT 96
--- NOTE | 2018-03-08 08:34 | Orthopedic Progress Note ---
Orthopedic Progress Note Date of Service Mar 08, 2018. Subjective Post OP Day: 2 Reports: feeling well, Denies: chest pain, SOB, nausea / vomiting, light headedness, calf pain Objective calves soft nontender, N/V intact, capillary refill less than 2 sec., dressing C /D/I, A&O x3, toes mobile Date Time Temp Pulse Resp B/P (MAP) Pulse Ox O2 Delivery O2 Flow Rate FiO2 03/08/18 08:23 36.7 88 18 96 Room Air 03/08/18 08:17 Room Air 03/08/18 06:49 36.7 88 18 120/80 (93) 96 Room Air 03/07/18 23:55 Room Air 03/07/18 22:55 36.6 76 16 117/76 (90) 98 Room Air 03/07/18 19:34 Room Air 03/07/18 15:02 36.9 88 18 134/80 (98) 98 Room Air 03/07/18 11:56 36.7 97 18 134/85 (101) 98 Room Air Assessment & Plan Assessment: 57 yo male stable POD #2 s/p repeat I&D, revision articulated antibiotic spacer , septic left TKA(MRSA) Plan: 1. Med management- medicine and infectious disease consulted, pt with PICC line in place and currently on Dapto 2. DVT prophylaxis- Xarelmegan, SCDs 3. PT/OT- gait training(TTWB), no knee flexion at this time(maintain knee immobilizer) 4. D/C planning- pt to require at least 6 more weeks IV abx ANTICIPATE DC TO HOME TODAY. RESUME PREVIOUS SERVICES.
[2018-03-08] MEDS ORDERED: ASPI81TA28 PO (08:44)
[2018-03-08] MEDS ORDERED: ONDA-170 PO (08:44)
[2018-03-08] MEDS ORDERED: ACET-24 PO (08:44)
[2018-03-08] MEDS ORDERED: RXC5 PO (08:44)
[2018-03-08] MEDS ORDERED: XRL10 PO (08:44)
--- NOTE | 2018-03-08 08:46 | Discharge Instructions ---
Discharge Instructions Date of Service Mar 08, 2018. Admission Reason for Admission: Left Knee Septic Total Knee Arthroplasty Discharge Discharge Diagnosis / Problem: SP REPEAT LEFT ANTIBIOTIC SPACER Discharge Goals Goal(s): Decrease discomfort, Improve function, Increase independence Activity Recommendations Activity Limitations: per Instructions/Follow-up section . Instructions / Follow-Up Instructions / Follow-Up ACTIVITY RECOMMENDATIONS: SELF CARE INSTRUCTIONS AFTER TOTAL KNEE REPLACEMENT A. WEAR KNEE IMMOBILIZER AT ALL TIMES. B. USE A WALKER AT ALL TIMES. C. Make walking a part of your daily routine. Be up as much as comfortable with rest periods throughout the day. Rest with leg elevation is very important. Use the ice wrap frequently for the first 3-4 weeks. D. There are no restrictions on activities. You may ride in a car, shop, participate in pulp beater and all social activities. E. Wear the long elastic stockings (PATRICIA hose) 20 hours a day for 2 weeks after surgery. They can be removed several times a day for laundering and for a bath. F. You may shower, no tub baths until cleared by your doctor. SPECIAL CARE INSTRUCTIONS: VERY IMPORTANT TO READ AND REVIEW A. There are a few signs you need to watch for after you are home. Call [facility] if you notice any of the followin. Increased severe knee pain. Some pain is expected especially when you exercise. 2. Increased swelling in your leg or knee; pain or swelling of the calf muscle in either lower leg. 3. Any fluid drainage from the incision. 4. Shortness of breath or chest pain. B. Please call [facility] at if you have any concerns or questions about your operation or recovery. The doctor or his nurse will return your call promptly. C. You must take antibiotics before dental work, bladder, bowel or other surgery. Your doctor will provide you with a permanent care to carry describing this precaution. IMPORTANT: * RESUME XARELTO. * HIGH RISK PATIENTS MAY BE PRESCRIBED A STRONGER BLOOD THINNER. THIS WILL BE PROVIDED AT DISCHARGE. * CALL IF INCREASED PAIN, REDNESS, DRAINAGE OR FEVER GREATER THAT 101. * WEAR PATRICIA HOSE 20 HOURS PER DAY FOR 2 WEEKS. * Zip Skin Closure You have a Zipline Closure System. As noted below, this keeps your incision closed. Change the dressing daily. Keep the wound covered with a dressing as it has the potential to snag on your clothing. The Zipline will remain on for a total of 2 weeks. Do not remove it! You will be given instructions by nursing staff at the time of discharge to care for your Zip Closure System. This devices uses plastic straps to keep your incision closed and protected throughout your recovery. If you have any questions please refer to these instructions first. FOLLOW UP VISIT: If appointment is not already scheduled: Please call [facility] to make a follow-up appointment for 2 weeks after your surgery at . CONTINUE IV ANTIBIOTICS AND PICC LINE CARE X 6 WEEKS. FOLLOW WITH INFECTIOUS DISEASE (DR. CONNELLY) SCHEDULED. Current Hospital Diet Patient's current hospital diet: Regular Diet Discharge Diet Recommended Diet: Regular Diet Procedures Procedures Performed: Left Knee Excisional Arthroplasty Placement of Articulated Spacer, Incision and Drainage of Extra-articular Abscess Pending Studies Studies pending at discharge: no Laboratory Results Hemoglobin A1c Test 12/30/17 09:44 Range/Units Estimated Average Glucose 114 mg/dl Hemoglobin A1c 5.6 4.5-5.6 % Medical Emergencies . Who to Call and When: Medical Emergencies: If at any time you feel your situation is an emergency, please call 911 immediately. . Non-Emergent Contact Non-Emergency issues call your: Surgeon . "Provider Documentation" section prepared by Sandra Heaton. . [place] Drug Monitoring Program Search Results: patient reviewed within database, no issues identified
[2018-03-08] MEDS: DAPTOmycin IV 700 MG in SYRINGE 0 ML IV SCH (09:23)
== END 2018-03-08 10:25 | disposition home health service (06) | DRG 560 ==
LOC: C.ACU 11:24 → C.3E 15:01 → ENRESERV 15:20
PROC: 0SHD08Z Insertion of Spacer into Left Knee Joint, Open Approach (ICD-10-PCS; principal; 2018-03-06 12:45)
PROC: 0SPD08Z Removal of Spacer from Left Knee Joint, Open Approach (ICD-10-PCS; principal; 2018-03-06 12:45)
DX: T84.54XA Infection and inflammatory reaction due to internal left knee prosthesis, initial encounter (principal); E66.9 Obesity, unspecified; Z68.41 Body mass index [BMI] 40.0-44.9, adult; K21.9 Gastro-esophageal reflux disease without esophagitis; G47.33 Obstructive sleep apnea (adult) (pediatric); E78.00 Pure hypercholesterolemia, unspecified; F32.9 Major depressive disorder, single episode, unspecified; Z79.899 Other long term (current) drug therapy; Y83.1 Surgical operation with implant of artificial internal device as the cause of abnormal reaction of the patient, or of later complication, without mention of misadventure at the time of the procedure; Y79.2 Prosthetic and other implants, materials and accessory orthopedic devices associated with adverse incidents; Z96.652 Presence of left artificial knee joint; F17.290 Nicotine dependence, other tobacco product, uncomplicated